=== PATIENT | female | born 1935 | race Caucasian/White ===

== ENCOUNTER 2016-10-29 06:47 | Outpatient (CLI) | payer MEDICARE ==
[2016-10-29 07:14] LABS: #Basophils 0.1 thou/uL (0.0-0.2); #Eosinphils 0.8 thou/uL (0.0-0.7); #Lymphocytes 2.7 thou/uL (1.20-3.40); #Monocytes 0.8 thou/uL (0.11-0.59); #Neutrophils 5.4 thou/uL (1.40-6.50); %Basophils 1.3 % (0.0-1.0); %Eosinophils 8.6 % (0.0-10.0); %Lymphocytes 27.2 % (21.0-51.0); %Monocytes 7.9 % (0.0-10.0); %Neutrophils 54.9 % (42.0-75.0); Hemoglobin 12.6 g/dL (12.0-16.0); Mean Corpuscular HGB CONC 33.1 g/dL (32.0-36.0); Mean Corpuscular Hemoglobin 28.8 pg (27.0-31.0); Mean Platelet Volume 7.6 fL (7.4-10.4); Platelet Count 386 thou/uL (130-400); RBC Distribution Width 13.4 % (11.5-14.5); Red Blood Cell (RBC) Count 4.38 mill/uL (4.20-5.40); White Blood Cell (WBC) Count 9.8 thou/uL (4.8-10.8)
[2016-10-29 07:27] LABS: Hemoglobin A1c 7.7 % (4.0-6.0)
[2016-10-29 07:30] LABS: ALT (SGPT) 20 U/L (0-55); AST (SGOT) 15 U/L (5-34); Alkaline Phosphatase 124 U/L (40-150); Anion Gap 15 mmol/L (10-20); BUN (Urea Nitrogen) 18 mg/dL (9.8-20.1); Bilirubin, Total 0.3 mg/dL (0.2-1.2); Calc. Creatinine Clearance 0 mL/min (70-130); Carbon Dioxide 24 mmol/L (23-31); Cardiac Risk 3.4 (Less than 4.5); Chloride 108 mmol/L (98-107); Cholesterol 136 mg/dL (< 200 Desired); Estimated GFR-MDRD 46; Globulin 2.8 g/dL (2.4-3.5); Glucose 98 mg/dL (83-110); HDL Cholesterol 40 mg/dL (>60 Neg Risk); LDL Cholesterol, Calculated 69 mg/dL; Phosphorus 3.6 mg/dL (2.3-4.7); Potassium 3.9 mmol/L (3.5-5.1); Protein, Total 5.8 g/dL (5.8-8.1); Sodium 143 mmol/L (136-145); Triglycerides 133 mg/dL (Less than 150)
== END 2016-10-29 06:48 ==
LOC: MADLABBHPM 06:47
PROVIDERS: ATTEND Family Medicine
DX: E11.22 Type 2 diabetes mellitus with diabetic chronic kidney disease (principal); N18.4 Chronic kidney disease, stage 4 (severe)
CPT/HCPCS: 36415; 80053; 80061; 83036; 83970; 84100; 84443; 85025

== ENCOUNTER 2017-01-31 07:27 | Outpatient (CLI) | payer MEDICARE ==
[2017-01-31 08:18] LABS: Hemoglobin A1c 7.3 % (4.0-6.0)
[2017-01-31 08:27] LABS: ALT (SGPT) 18 U/L (8-55); AST (SGOT) 14 U/L (5-34); Alkaline Phosphatase 149 U/L (40-150); Anion Gap 12 mmol/L (10-20); BUN (Urea Nitrogen) 15 mg/dL (9.8-20.1); Bilirubin, Total 0.5 mg/dL (0.2-1.2); Calc. Creatinine Clearance 0 mL/min (70-130); Carbon Dioxide 25 mmol/L (23-31); Chloride 109 mmol/L (98-107); Estimated GFR-MDRD 37; Globulin 3.1 g/dL (2.4-3.5); Glucose 120 mg/dL (83-110); Protein, Total 6.1 g/dL (6.0-8.3); Sodium 142 mmol/L (136-145)
[2017-01-31 08:46] LABS: Free T4 (Free Thyroxine) 0.96 ng/dL (0.70-1.48); Thyroid Stimulating Hormone 4.4748 uIU/mL (0.35-4.94)
[2017-01-31 12:53] LABS: Vitamin D, 25 Hydroxy 24.7 ng/mL (> 30.0)
== END 2017-01-31 07:28 ==
LOC: MADLABBHPM 07:27
PROVIDERS: ATTEND Family Medicine
DX: E11.65 Type 2 diabetes mellitus with hyperglycemia (principal); I10 Essential (primary) hypertension
CPT/HCPCS: 36415; 80053; 82306; 83036; 83970; 84439; 84443

== ENCOUNTER 2017-05-05 07:09 | Outpatient (CLI) | payer MEDICARE ==
[2017-05-05 07:31] LABS: Hemoglobin A1c 7.9 % (4.0-6.0)
[2017-05-05 07:41] LABS: ALT (SGPT) 26 U/L (8-55); AST (SGOT) 19 U/L (5-34); Albumin 2.9 g/dL (3.4-4.8); Alkaline Phosphatase 151 U/L (40-150); Anion Gap 12 mmol/L (10-20); BUN (Urea Nitrogen) 19 mg/dL (9.8-20.1); Bilirubin, Total 0.3 mg/dL (0.2-1.2); Calc. Creatinine Clearance 0 mL/min (70-130); Carbon Dioxide 24 mmol/L (23-31); Cardiac Risk 3.3 (Less than 4.5); Chloride 110 mmol/L (98-107); Cholesterol 143 mg/dl (< 200 Desired); Estimated GFR-MDRD 31; Globulin 3.2 g/dL (2.4-3.5); Glucose 137 mg/dL (83-110); HDL Cholesterol 43 mg/dL (>60 Neg Risk); LDL Cholesterol, Calculated 74 mg/dL; Potassium 4.1 mmol/L (3.5-5.1); Protein, Total 6.1 g/dL (6.0-8.3); Sodium 142 mmol/L (136-145); Triglycerides 129 mg/dL (Less than 150)
== END 2017-05-05 07:10 | disposition home or self-care (01) ==
LOC: MADLABBHPM 07:09
PROVIDERS: ATTEND Family Medicine
DX: E11.65 Type 2 diabetes mellitus with hyperglycemia (principal)
CPT/HCPCS: 36415; 80053; 80061; 83036

== ENCOUNTER 2017-11-16 16:28 | Emergency (ER) | payer MEDICARE ==
[~2017-11-16 16:28] MED LIST: Sodium Chloride 0.9% 1,000 ML BAG ONE
[2017-11-16 17:29] LABS: Anion Gap 17 mmol/L (10-20); BUN (Urea Nitrogen) 23 mg/dL (9.8-20.1); Calc. Creatinine Clearance 0 mL/min (70-130); Calcium 9.2 mg/dL (7.8-10.44); Carbon Dioxide 21 mmol/L (23-31); Chloride 105 mmol/L (98-107); Estimated GFR-MDRD 25; Glucose 459 mg/dL (83-110); Potassium 4.4 mmol/L (3.5-5.1); Sodium 139 mmol/L (136-145)
[2017-11-16 17:31] LABS: Hemoglobin 12.3 g/dL (12.0-16.0); Mean Corpuscular HGB CONC 33.7 g/dL (32.0-36.0); Mean Corpuscular Hemoglobin 30.8 pg (27.0-31.0); Mean Corpuscular Volume 91.5 fL (81.0-99.0); Red Blood Cell (RBC) Count 4.01 mill/uL (4.20-5.40); White Blood Cell (WBC) Count 14.1 thou/uL (4.8-10.8)
[2017-11-16 17:32] LABS: #Eosinphils 0.5 thou/uL (0.0-0.7); #Lymphocytes 2.2 thou/uL (1.20-3.40); #Monocytes 0.7 thou/uL (0.11-0.59); #Neutrophils 10.6 thou/uL (1.40-6.50); %Basophils 0.4 % (0.0-1.0); %Eosinophils 3.6 % (0.0-10.0); %Lymphocytes 15.6 % (21.0-51.0); %Monocytes 5.1 % (0.0-10.0); %Neutrophils 75.3 % (42.0-75.0); Manual Diff?? NO; Mean Platelet Volume 6.7 fL (7.4-10.4); Platelet Count 298 thou/uL (130-400); RBC Distribution Width 13.6 % (11.5-14.5)
[2017-11-16 17:33] LABS: #Basophils 0.1 thou/uL (0.0-0.2)
[2017-11-16 17:35] LABS: Bilirubin Negative (Negative); Blood, Urine Moderate (Negative); Clarity Clear (Clear); Glucose, Urine (Dipstick) >=1000 mg/dL (Negative); Leukocyte Negative (Negative); Nitrite Negative (Negative); Protein, Urine (Dipstick) > or equal to 300 mg/dL (Neg-Trace); Urobilinogen 0.2 mg/dL (0.2-1.0)
[2017-11-16 17:39] LABS: Bacteria/HPF Rare-Few HPF (None Seen); Squamous Epithelial 0-3 HPF (0-3); WBC/HPF 0-3 HPF (0-3)
[2017-11-16] MEDS ORDERED: Amlodipine 5 MG TAB ONE (18:02)
--- NOTE | 2017-11-16 19:16 | RAD ---
TWO VIEWS CHEST: Date: 11-16-17 Comparison: 12-28-08 History: Cough. FINDINGS: There is atherosclerotic calcification of the aortic arch. There is no pneumothorax or pleural fluid. No focal consolidation or alveolar edema. Heart and mediastinal contours demonstrate mild cardiac pr ominence. There is atherosclerotic calcification of the descending thoracic aorta and abdominal aorta . IMPRESSION: Chronic findings as above. No lobar consolidation or alveolar edema. POS: [facility]
== END 2017-11-16 19:45 | disposition home or self-care (01) ==
LOC: MADERS 16:28
DX: E11.65 Type 2 diabetes mellitus with hyperglycemia (principal); J02.9 Acute pharyngitis, unspecified; E78.5 Hyperlipidemia, unspecified; I10 Essential (primary) hypertension; Z87.891 Personal history of nicotine dependence; Z79.82 Long term (current) use of aspirin; Z79.899 Other long term (current) drug therapy
CPT/HCPCS: 36415; 36416; 71046; 80048; 81003; 81015; 85025; 87081; 87430; 96360; J7050

== ENCOUNTER 2018-02-16 20:39 | Emergency (ER) | payer MEDICARE ==
[2018-02-16] MEDS ORDERED: Ondansetron ODT 4 MG TAB ONE (21:12)
[2018-02-16] MEDS ORDERED: Fentanyl 100 MCG/2 ML VIAL ONE ×2 (21:12→22:36)
[2018-02-16 21:25] LABS: Bilirubin Negative (Negative); Blood, Urine Small (Negative); Clarity Clear (Clear); Glucose, Urine (Dipstick) 500 mg/dL (Negative); Leukocyte Negative (Negative); Nitrite Negative (Negative); Protein, Urine (Dipstick) > or equal to 300 mg/dL (Neg-Trace); Specific Gravity, Urine 1.025 (1.005-1.030); Urobilinogen 0.2 mg/dL (0.2-1.0)
[2018-02-16 21:37] LABS: Anion Gap 17 mmol/L (10-20); BUN (Urea Nitrogen) 28 mg/dL (9.8-20.1); Calc. Creatinine Clearance 0 mL/min (70-130); Calcium 9.2 mg/dL (7.8-10.44); Carbon Dioxide 19 mmol/L (23-31); Chloride 103 mmol/L (98-107); Estimated GFR-MDRD 25; Glucose 254 mg/dL (83-110); Lipase 15 U/L (8-78); Potassium 4.1 mmol/L (3.5-5.1); Sodium 135 mmol/L (136-145)
[2018-02-16 21:39] LABS: Hemoglobin 11.6 g/dL (12.0-16.0); Mean Corpuscular HGB CONC 33.2 g/dL (32.0-36.0); Mean Corpuscular Hemoglobin 28.6 pg (27.0-31.0); Mean Corpuscular Volume 86.3 fl (81.0-99.0); Mean Platelet Volume 6.2 fL (7.4-10.4); Platelet Count 371 thou/uL (130-400); RBC Distribution Width 13.3 % (11.5-14.5); Red Blood Cell (RBC) Count 4.06 mill/uL (4.20-5.40); White Blood Cell (WBC) Count 21.5 thou/uL (4.8-10.8)
[2018-02-16 21:41] LABS: Band 13 % (5-11); Lymphocytes 8 % (21-51); MDiff Complete? YES; Monocytes 2 % (0-10); Neutrophil 73 % (42-75)
[2018-02-16 21:42] LABS: Metamyelocyte 4 % (0-0)
[2018-02-16 21:42] LABS: Bacteria/HPF Rare-Few HPF (None Seen); Renal Epithelial 0-3 HPF (0-3); Squamous Epithelial 0-3 HPF (0-3); Transitional Epithelial 0-3 HPF (0-3); WBC/HPF 0-3 HPF (0-3)
[2018-02-16 21:43] LABS: CKMB 5.8 ng/mL (0-6.6); Troponin I 0.011 ng/mL (< 0.028)
[2018-02-16 21:43] LABS: Hyaline Casts/LPF 7-10 HYALINE CAST LPF (0-3 Hyaline); Other Casts/LPF 7-10 MIXED CASTS LPF (0-3 Hyaline)
[2018-02-16] MEDS ORDERED: Azithromycin 500 MG VIAL ONE (21:50)
[2018-02-16] MEDS ORDERED: cloNIDine 0.1 MG TAB ONE (21:51)
[2018-02-16] MEDS ORDERED: Nitroglycerin 2% Ointment 1 INCH/1 GM Packet ONE (22:09)
--- NOTE | 2018-02-16 22:12 | CT ---
CT ABDOMEN NONCONTRAST CT PELVIS NONCONTRAST: (urolithiasis protocol) DATE: 02/16/2018 TIME: 9:20 p.m. HISTORY: An 82-year-old female with right-sided abdominal pain. Dr. Soto reported the right sided pneumatosis coli, by telephone, to Dr. Guicho Ta, of the [facility] Emergency Department, at 9:57 p.m. on 02/16/2018. COMPARISON: 09/26/2010 TECHNIQUE: IV injection of iodinated contrast media: None. Oral contrast media: None. FINDINGS: Other than for urolithiasis, the lack of IV and oral contrast limits the evaluation. There is a new finding of mural gas circumferentially at the cecum (pneumatosis coli). There is mild mural thickening of the colon, beginning at the mid transverse colon, and contiguously involving the left transverse colon, the splenic flexure, the descending colon, and the sigmoid colon, suggestive of an at least mild left-sided colitis. Heavy atherosclerotic calcification of a nonaneurysmal abdominal aorta, the iliac arteries, the SMA, the splenic artery, and the bilateral renal arteries. There is another new finding of portal vein ga s within branches of the left portal vein, throughout much of the left lobe of the liver. There is no hydronephrosis. No ureteral calculus or bladder calculus. No signs of acute colonic div erticulitis. Within the limitations of the noncontrast scan, no major pathology is identified involv ing the atrophic pancreas, the right adrenal, or the spleen. No signs of acute cholecystitis. No sm all bowel dilation. No ascites or pneumoperitoneum. The lung bases are grossly clear. IMPRESSION: 1. Pneumatosis coli involving the cecum. 2. Associated portal vein gas involving multiple peripheral branches of the left portal vein. 3. Possibilities include ischemic colitis and infectious colitis involving the cecum. 4. Findings suggestive of a milder colitis involving the left hemicolon. CODE CR JN R POS: [facility]
== END 2018-02-16 23:16 | disposition short-term general hospital (02) ==
LOC: MADERS 20:39
DX: K65.0 Generalized (acute) peritonitis (principal); E78.5 Hyperlipidemia, unspecified; I12.9 Hypertensive chronic kidney disease with stage 1 through stage 4 chronic kidney disease, or unspecified chronic kidney disease; E11.22 Type 2 diabetes mellitus with diabetic chronic kidney disease; N18.9 Chronic kidney disease, unspecified; F03.90 Unspecified dementia, unspecified severity, without behavioral disturbance, psychotic disturbance, mood disturbance, and anxiety; Z87.891 Personal history of nicotine dependence; Z79.4 Long term (current) use of insulin; Z86.718 Personal history of other venous thrombosis and embolism; Z79.899 Other long term (current) drug therapy
CPT/HCPCS: 36415; 51701; 74176; 80048; 81003; 81015; 82150; 82553; 83605; 83690; 84484; 85025; 87086; 93005; 96361; 96365; 96368; 96375; 96376; A4353; J0456; J3010; J3370; J7050; Q0162

== ENCOUNTER 2018-03-04 09:39 | Outpatient (CLI) | payer MEDICARE ==
[2018-03-04 10:17] LABS: ALT (SGPT) 18 U/L (8-55); AST (SGOT) 21 U/L (5-34); Albumin 2.5 g/dL (3.4-4.8); Alkaline Phosphatase 99 U/L (40-150); Anion Gap 17 mmol/L (10-20); BUN (Urea Nitrogen) 19 mg/dL (9.8-20.1); Bilirubin, Total 0.3 mg/dL (0.2-1.2); Calc. Creatinine Clearance 0 mL/min (70-130); Calcium 8.3 mg/dL (7.8-10.44); Carbon Dioxide 19 mmol/L (23-31); Chloride 113 mmol/L (98-107); Estimated GFR-MDRD 29; Globulin 2.9 g/dL (2.4-3.5); Glucose 65 mg/dL (83-110); Potassium 4.4 mmol/L (3.5-5.1); Protein, Total 5.4 g/dL (6.0-8.3); Sodium 145 mmol/L (136-145)
[2018-03-04 16:26] LABS: Hemoglobin A1c 7.9 % (4.0-6.0)
== END 2018-03-04 09:40 | disposition home or self-care (01) ==
LOC: MADLAB 09:39
PROVIDERS: ATTEND Family Medicine
DX: E11.22 Type 2 diabetes mellitus with diabetic chronic kidney disease (principal); N18.9 Chronic kidney disease, unspecified; E03.9 Hypothyroidism, unspecified; R03.0 Elevated blood-pressure reading, without diagnosis of hypertension; I25.10 Atherosclerotic heart disease of native coronary artery without angina pectoris
CPT/HCPCS: 80053; 83036; 84443

== ENCOUNTER 2018-11-09 11:59 | Emergency (ER) | payer MEDICARE ==
[2018-11-09] MEDS ORDERED: Azithromycin 250 MG TAB ONE (13:01)
--- NOTE | 2018-11-09 14:16 | RAD ---
ABDOMEN 2 VIEWS WITH CHEST 1 VIEW: Date: 11/09/18 HISTORY: Dementia, swallowed a spoon. COMPARISON: 02/17/18. FINDINGS: Heart size is at least borderline enlarged with moderate left pleural effusion and some patchy parenc hymal changes in the left mid and lower lung zone. These changes have worsened when compared to the 0 02/17/18 study. No evidence for large or small bowel obstruction. No evidence for an abnormal swallowed foreign body. Prominent vascular calcifications. No bowel obstruction or overt calculus or free air. IMPRESSION: No significant acute process in the abdomen or pelvis. No evidence for swallowed foreign body. Modera te left pleural effusion and patchy parenchymal changes in the left mid lung zone. Short-term follow- up for clearing or stability is suggested. POS: [facility]
== END 2018-11-09 13:20 | disposition home or self-care (01) ==
LOC: MADERS 11:59
DX: J18.9 Pneumonia, unspecified organism (principal); J90 Pleural effusion, not elsewhere classified; F03.90 Unspecified dementia, unspecified severity, without behavioral disturbance, psychotic disturbance, mood disturbance, and anxiety; Z79.82 Long term (current) use of aspirin; Z79.899 Other long term (current) drug therapy
CPT/HCPCS: 74022

== ENCOUNTER 2018-11-30 08:39 | Outpatient (CLI) | payer MEDICARE ==
[2018-11-30 09:40] LABS: ALT (SGPT) 14 U/L (8-55); AST (SGOT) 13 U/L (5-34); Albumin 2.4 g/dL (3.4-4.8); Alkaline Phosphatase 140 U/L (40-150); Anion Gap 11 mmol/L (10-20); BUN (Urea Nitrogen) 28 mg/dL (9.8-20.1); Bilirubin, Total 0.2 mg/dL (0.2-1.2); Calc. Creatinine Clearance 0 mL/min (70-130); Calcium 8.9 mg/dL (7.8-10.44); Carbon Dioxide 22 mmol/L (23-31); Chloride 111 mmol/L (98-107); Estimated GFR-MDRD 14; Globulin 3.5 g/dL (2.4-3.5); Glucose 134 mg/dL (83-110); Potassium 3.3 mmol/L (3.5-5.1); Protein, Total 5.9 g/dL (6.0-8.3); Sodium 141 mmol/L (136-145)
--- NOTE | 2018-11-30 09:46 | RAD ---
FExam:Right hip 2 views HISTORY: Pain FINDINGS: Mild loss of joint space height. Contour of the femoral head is maintained. No fracture or malalignment. Vascular calcifications are noted. IMPRESSION: Mild degenerative change.
--- NOTE | 2018-11-30 09:48 | RAD ---
FXR Tib Fib Rt Leg 2 View History: [Swelling without trauma] Comparison: None Findings: There is extensive superficial soft tissue swelling. There are phleboliths in the anterior pretibial soft tissues. Moderate vascular calcifications. There is possibly a radiopaque foreign object along the distal fibular tip versus a phlebolith. Impression: Circumferential soft tissue swelling can be seen with cellulitis. No acute fracture or ma lalignment. Mild periosteal new bone formation along the distal medial tibial metadiaphysis. Chronic venous stasi s is a possibility. Possible radiopaque object along the distal fibular tip. Dedicated ankle radiographs are recommended if clinically warranted.
--- NOTE | 2018-11-30 09:59 | RAD ---
PA AND LATERAL VIEWS CHEST: HISTORY: Pneumonia. FINDINGS: Comparison is made with the exam of 11/16/2017. The heart is enlarged. The aorta is tortuous. There is left lower lobe consolidation with accompany ing effusion. Mild densities are also seen in the left mid lung. No pneumothoraces are identified. The right lung is clear. IMPRESSION: Left lower lobe pneumonia. POS: [facility]
--- NOTE | 2018-11-30 10:13 | RAD ---
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 Erosion of the distal second digit. Soft tissue swelling. Vascular calcifications. Lisfranc alignment is maintained. IMPRESSION: 1. Soft tissue swelling. Correlate for cellulitis. 2. Possible osteomyelitis in the tip of the second digit. 2. Postsurgical changes at the first digit.
[2018-11-30 17:03] LABS: Hemoglobin A1c 6.6 % (4.0-6.0)
== END 2018-11-30 08:40 ==
LOC: MADLABBHPM 08:39
PROVIDERS: ATTEND Family Medicine
DX: M25.551 Pain in right hip (principal); M79.651 Pain in right thigh; M79.89 Other specified soft tissue disorders; J90 Pleural effusion, not elsewhere classified; E11.65 Type 2 diabetes mellitus with hyperglycemia; E88.09 Other disorders of plasma-protein metabolism, not elsewhere classified; E03.9 Hypothyroidism, unspecified; J18.1 Lobar pneumonia, unspecified organism; L03.115 Cellulitis of right lower limb; M16.11 Unilateral primary osteoarthritis, right hip; Z98.890 Other specified postprocedural states
CPT/HCPCS: 36415; 71046; 80053; 83036; 84443

== ENCOUNTER 2018-12-29 13:04 | Emergency (ER) | payer MEDICARE ==
--- NOTE | 2018-12-29 13:45 | RAD ---
RIGHT HIP 2 VIEWS: HISTORY: Injury, fall, right hip pain. FINDINGS: No acute fracture or dislocation is identified. If there is a high clinical suspicion for a right hip fracture, further evaluation with CT or MRI arleen uld be performed. POS: [facility]
--- NOTE | 2018-12-29 13:46 | RAD ---
LEFT HIP 2 VIEWS: HISTORY: Injury, fall, left hip pain. FINDINGS: No acute fracture or dislocation is identified. If there is high clinical suspicion for a hip fracture, further evaluation with CT scan or MRI should be performed. POS: [facility]
--- NOTE | 2018-12-29 13:50 | RAD ---
RIGHT HAND 3 VIEWS: HISTORY: Injury, fall, right hand pain. FINDINGS/IMPRESSION: No acute fracture or dislocation is identified. POS: [facility]
== END 2018-12-29 14:00 | disposition home or self-care (01) ==
LOC: MADERS 13:04
DX: S51.011A Laceration without foreign body of right elbow, initial encounter (principal); S70.02XA Contusion of left hip, initial encounter; S70.01XA Contusion of right hip, initial encounter; S60.221A Contusion of right hand, initial encounter; I25.10 Atherosclerotic heart disease of native coronary artery without angina pectoris; E11.40 Type 2 diabetes mellitus with diabetic neuropathy, unspecified; E03.9 Hypothyroidism, unspecified; D64.9 Anemia, unspecified; I12.9 Hypertensive chronic kidney disease with stage 1 through stage 4 chronic kidney disease, or unspecified chronic kidney disease; N18.9 Chronic kidney disease, unspecified; D63.1 Anemia in chronic kidney disease; Z79.82 Long term (current) use of aspirin; Z79.899 Other long term (current) drug therapy; W18.30XA Fall on same level, unspecified, initial encounter